=== PATIENT | female | born 1995 | race Caucasian/White ===

== ENCOUNTER 2024-03-12 07:00 | Outpatient (CLI) | payer OTHER, SELFPAY ==
--- OUTSIDE RECORDS SUMMARY | 2024-03-11 16:06 | XMS_ITS | Clinical Summary ---
Author Organization [facility] Address [place], [place] [address] Care Team Providers Care Tax Analyst Name Role Phone Demi Rosario MD Primary Care Provider [phone] Allergies No known active allergies Medications triamcinolone 0.5% (ARISTOCORT) 0.5 % creamIndications :Eczema, unspecified type APPLY EXTERNALLY TO THE AFFECTED AREA THREE TIMES DAILY 15 g 5 4 Active Active Problems Problem Noted Date Diagnosed Date Bilateral temporomandibular joint pain 4 Overview (04/18/2023): dentist referral to head and neck clinic Family history of breast cancer 06/17/2018 Overview (04/18/2023): Mother summer 2022 Eczema 10/19/2013 Resolved Problems Problem Noted Date Diagnosed Date Resolved Date Contraception 10/19/2013 04/18/2023 Overview (08/20/2016): IUD placed 08/2016 Immunizations Name Administration Dates Next Due DTaP 04/25/1999 Hepatitis B (Adult) 01/31/2017,08/07/2016,2016 Human Papilloma Virus Vaccine 10/06/2009 ,10/06/2009,05/23/2009,05/23,01/31/2009,01/31/2009 Inactivated Polio Vaccine 04/25/1999 Influenza Virus, Unspecified 12/24/2015, 12/14/2014,12/24/2013,12/24 Influenza, IIV3 (Age 6-35 mos) 12/16/2010 Influenza, IIV3 (Age >=3 years) 02/03/2013 Influenza, IIV4 12/30/2019,01/31/2017,02/13/2016 MENINGOCOCCAL VACCINE 2 VIAL 2MO-55YO (MENVEO) 10/19/2013 MMR 04/25/1999 Meningococcal Vaccine (Menactra) 06/02/2012,03/11 Meningococcal Vaccine (Menomune) 09/30/2006 Td (Age >=7 Years) 09/30/2006 Tdap 10/19/2013,09/30/2006 Tuberculin (PPD) 06/19/2018,07/07/2017 Family History Medical History Relation Name Comments Allergies Brother PCn Depression Brother Allergies Mother PCN Cancer-breast Mother Hyperlipidemia Paternal Grandfather Hypertension Paternal Grandfather Alcohol/Drug Paternal Uncle Relation Name Status Comments Brother Alive Father Alive Maternal Grandfather Alive Maternal Grandmother Alive Mother Alive Paternal Grandfather Alive Paternal Grandmother Alive Paternal Uncle Sister 1 Alive Sister 2 Alive Social History Tobacco Use Types Packs/Day Years Used Date Smoking Tobacco: Never Smokeless Tobacco: Never Tobacco Cessation:Counseling Given: Yes Alcohol Use Standard Drinks/Week Comments Yes 0 (1 standard drink = 0.6 oz pur e alcohol) Occasionally PHQ-2 Answer Date Recorded PHQ-2 TOTAL SCORE 1 04/18/2023 Social Connections Answer Date Recorded Frequency of Communication with Friends and Fami ly Not on file 04/18/2023 Financial Resource Strain Answer Date R ecorded Difficulty of Paying Living Expenses Not on file 2021 Difficulty of Paying Living Expenses Not on file 2021 Comments No Sex and Gender Information Value Date Recorded Sex Assigned at Not on file Legal Sex Female 5:50 AM 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 SPECIALIST Gender Identity Not on file Sexual Orientation Not on file Occupation Industry Job Start Date Job End Date student Not on file Not on file Not on file Obstetrics History Para Term AB IAB SAB Ectopic Multiple Livin g Live Births 0 0 0 0 0 0 0 0 0 0 Last Filed Vital Signs Vital Sign Reading Time Taken Comments Blood Pressure 106/72 04/18/2023 8:44 AM INTERNET SPECIALIST Pulse 83 04/18/2023 8:44 AM INTERNET SPECIALIST Temperature 37 C (98.6 F) 06/17/2018 9:25 AM CDT Respiratory Rate 20 08/17/2021 11:30 AM CDT Oxygen Saturation 98% 04/18/2023 8:44 AM INTERNET SPECIALIST Inhaled Oxygen Concentration - - Weight 72.1 kg (159 lb) 04/18/2023 8:44 AM INTERNET SPECIALIST Height 161.3 cm (5' 3.5) 04/18/2023 8:44 AM INTERNET SPECIALIST Body Mass Index 27.72 04/18/2023 8:44 AM INTERNET SPECIALIST Plan of Treatment Health Maintenance Due Date Last Done Comments HIV for age 15-65 2009 Hepatitis C screening for age 18-79 2012 Pap test for age 21-65 09/09/2023 09/08/2020, 2016 Tetanus booster 10/20/2023 10/19/2013, 09/08, 09/30/2006 COVID-19 vaccine series ( season) 2023 04/11/2020, 03/14/2020 Influenza for age 9-49 11/09/2023 , 01/31/2017, 02/13/2016, Additional history exists BMI (ht and wt on same day) for age 18+ 04/18/2024 04/18/2023, 08/17/2021, 09/08/2020, Additional history exists Depression screening for age 12+ 04/18/2024 04/18/2023, 08/17/2021, 09/08/2020, Additional history exists Tdap Completed 10/19/2013, 09/30/2006 Pneumococcal series for age 6-49 Aged Out No longer eligible based on patient's age to complete this topic Procedures Procedure Name Priority Date/Time Associated Diagnosis Comments COSTUME DRAPER THIN PREP PAP SCREEN IMAGED Routine 09/08/2020 3:13 PM CDT Screening for cervical cancer from Last 3 Months or Most Recently Relevant to Health Maintenance Results * COSTUME DRAPER THIN PREP PAP SCREEN IMAGED [[id number]] (09/08/2020 3:13 PM CDT) Case Report Gynecologic Cytology Report Case: [id number] Authorizing Provider: Demi Rosario MD Collected: 09/08/2020 1513 Ordering Location: [facility] Received: 09/08/2020 1513 Clinic First Screen: Lázaro Quach Specimen: COSTUME DRAPER ThinPrep Vial Screening, Cervical 09/20/2020 10:32 AM CDT [facility] [employer] [facility] INTERPRETATION/ RESULT NEGATIVE FOR INTRAEPITHELIAL LESION OR MALIGNANCY (NIL) (none) 09/20/2020 10:32 AM CDT [facility] [employer] [facility] IMEN ADEQUACY Satisfactory for evaluation Endocervical component present 09/20/2020 10:32 AM CDT [facility] [employer] [facility] HPV REQUEST HPV if ASCUS 09/20/2020 10:32 AM CDT [facility] [employer] [facility] Date of LMP 08/23/2020 09/20/2020 10:32 AM CDT [facility] [employer] [facility] Last Pap Date 08/20/16 09/20/2020 10:32 AM CDT [facility] [employer] [facility] Last Pap Result NIL 10:32 AM CDT [facility] [employer] [facility] Abnormal Pap or [place] Bx in last 5 years No 09/20/2020 10:32 AM CDT [facility] [employer] [facility] Menstrual Status Regular Periods 09/20/2020 10:32 AM CDT [facility] [employer] [facility] [place] Bx Done Today No 09/20/2020 10:32 AM CDT [facility] [employer] [facility] Additional Information None given 09/20/2020 10:32 AM CDT [facility] [employer] [facility] ENTRAL [facility] Comment: Cytology is screened at [facility] [employer], Central Laboratory - [address], [place] [address] and [facility] - [address] [address], [place] [address] and [facility] - [address] [place] [address] Interpreted at [facility], Central Laboratory - [address], [place] [address] Automated Review Successful 09/20/2020 10:32 AM CDT [facility] [employer] [facility] ENTRAL [facility] Comment:Specimen processed s uccessfully by automated box toe maker device, ThinPrep Imaging System, [employer] Note The pap test is a screening technique, not a diagnostic procedure. It is used primarily to screen for squamous cancers and precursor lesions. Published studies have shown that it is subject to both false negative and false positive results. The pap test should not be used as the sole means to diagnose or exclude pre-malignant and malignant lesions. 09/20/2020 10:32 AM CDT [facility] Other (Cervical) Non-Blood / Unknown 09/08/2020 3:13 PM CDT 09/08/2020 3:13 PM CDT us Demi Rosario MD PATHOLOGY/CYTOLOGY Final R esult [facility] LAB[facility] [address] [place] [address], [place] from Last 3 Months or Most Recently Relevant to Health Maintenance Care Teams Tax Analyst Relationship Specialty Start Date End Date Demi Rosario MD PCP - General 05/20/08
--- OUTSIDE RECORDS SUMMARY | 2024-03-11 16:06 | XMS_ITS | Encounter Summary ---
Author Organization [facility] Address [address], [place] [address] Care Team Providers Care Nurses Aide Name Role Phone Demi Rosario MD Primary Care Provider [phone] Encounter Details Date Type Department Care Team ([facility] st Contact Info) Description 08/30/2023 Notes/Orders [facility] [id number] [place], [place] [id number] [place] [id number] [address] [place], [place] [id number] Social History Tobacco Use Types Packs/Day Years Used Date Smoking Tobacco: Never Assessed Sex and Gender Information Value Date Recorded Sex Assigned at Not on file Gender Identity Not on file Sexual Orientation Not on file documented as of this encounter Progress Notes * Yani Gross, PT - 08/30/2023 11:59 PM CDT Physical Therapy Discharge Summary Outcome measures at discharge: PT - Discharge Total Visits: 2 Reason for discharge: Patient has not been consistent with attendance and/or failed to schedule appointments as planned. Attainment of goals: See above Patient Compliance with Therapy: Patient did not return for follow up care as planned, so unable to determine patient's current level of function. Discharge recommendations: Patient will continue to work independently with home program/self management strategies. OR PACKAGING ENGINEER documented in this encounter Plan of Treatment Not on file documented as of this encounter Visit Diagnoses Not on filedocumented in this encounter Care Teams Nurses Aide Relationship Specialty Start Date End Date Demi Rosario MD [address] [place] [address] PCP - General Family Practice 08/15/23 documented as of this encounter
--- OUTSIDE RECORDS SUMMARY | 2024-03-11 16:06 | XMS_ITS | Clinical Summary ---
Author Organization [facility] Address [address] [place] [address] Care Team Providers Care Adjunct Writing Instructor Name Role Phone Demi Rosario MD Primary Care Provider [phone] Source Comments You are receiving this document as you are listed as the primary care provider,follow-up provider, or the patient has been referred to you for consultation.This is in compliance with the Medicare and[facility] [employer] EHR Incentive Program,which states Providers who transition their patient to another setting of careor provider of care or refers their patient to another provider of care shouldprovide summary care record for each transition of care or referral. [facility] [employer] Social History Tobacco Use Types Packs/Day Years Used Date Smoking Tobacco: Never Assessed Sex and Gender Information Value Date Recorded Sex Assigned at Not on file Gender Identity Not on file Sexual Orientation Not on file Plan of Treatment Health Maintenance Due Date Last Done Comments Cervical Cancer Screening Due 1994 Hep C Screening (Preventive Services) 1994 IPV (Polio) (2 of 3 - 4-dose series) 05/23/1999 04/25/1999 HIV Screening (Preventive Services) 2010 Adult Preventive Visit 2012 HepB (1) 2013 DTaP/Tdap/Td (4 - Tdap) 10/20/2023 10/20/19 14, 09/30/2006, 09/30/2006, Additional history exists COVID-19 Vaccine ( season) 2023 04/11/2020, 03/14/2020 Influenza (#1) 2023 12/30/2019, 01/09, 02/13/2016, Additional history exists Zoster/Shingles (1 of 2) 2044 HPV Vaccine Completed 10/06/2009, 05/08, 01/31/2009 MCV4 Completed 10/19/2013, 05/09, 09/30/2006, Additional history exists HepA Aged Out No longer eligi ble based on patient's age to complete this topic Hib Aged Out No longer eligi ble based on patient's age to complete this topic Pneumococcal Aged Out No longer eligi ble based on patient's age to complete this topic Care Teams Adjunct Writing Instructor Relationship Specialty Start Date End Date Demi Rosario MD [address] [place] [id number] PCP - General Family Practice 08/15/23
--- OUTSIDE RECORDS SUMMARY | 2024-03-11 16:06 | XMS_ITS | Data Portability ---
Author Organization [place] [facility] Address [address] [place] [id number] Care Team Providers Care Router Setter Name Role Phone NISHA MONAE MD Primary Care Provider MEHRAN TRINH Referring Provider [phone] Assessment Encounter Date Assessment Date Assessment LastModified by Organization Details LastModified Time 07/25/2023 07/25/2023 Today I spent a considerable amount of time discussing the patients past medical and personal history, as well as performing a physical examination all of which is documented in it's entirety in the electronic health record. I reviewed the pathophysiology of the disorder, potential contributing and risk factors as well as treatment options to address their complaints. I discussed the pros and cons of advanced imaging with CT. Today no imaging was obtained. Panoramic imaging from March 2022 was reviewed with patient today. In this radiograph the mandibular condyles were partially visualized and appear relatively normal in morphology. There was no other suggestion of osseous or odontogenic abnormalities. I believe it is reasonable to defer advanced imaging at this time. From a treatment perspective I recommended a rehabilitative treatment approach. Treatment begins with home self management designed to rest the muscles of mastication and reduce inflammation in the temporomandibular joints. This includes heat and ice compresses, eating a soft food or pain-free diet, bilateral chewing identifying and decreasing daytime muscle tension and modification of their sleep position. Today I taught simple jaw exercises designed to improve the jaw mechanics and movement, improve range of mouth opening and improve TM joint fluid circulation to facilitate healing. This includes jaw rotation, simple stretch and relaxed breathing. This was both demonstrated and given in written format. Concurrently I taught proper posture. Beyond self management I believe that they would benefit from a mandibular intraoral appliance. This will be considered in follow up after exploring insurance coverage. In addition I've recommended rehabilitation with physical therapy. A referral was provided per patient request. I discussed medication options including use of NSAIDs and muscle relaxants. I discussed the medication overuse component of NSAIDs.. We mutually agreed to defer medications at this time. I recommended supplementation with Magnesium glycinate at this time. I reinforced addressing daytime contributing factors including postural factors. I encouraged mini-breaks during the day, chin tuck exercise and relaxed breathing. The goal of treatment is to improve pain, function and focus on long-term self-management strategies. I believe that by following these treatment recommendations there is a good prognosis for reduction of symptoms. History was obtained from the patient. The patient has 5 diagnoses they would like to address. This case is moderate complexity because of multiple diagnoses with chronic symptoms. Data reviewed included: previous imaging. Risk of complications include progressive disease/symptoms. Today time spent may have included a review of past records, history taking, review of diagnoses, contributing factors, treatment plan, diagnostic testing, prognosis, expectations, risks and complications of treatment/no treatment, discussions with other providers and completing documentation was 60 minutes. Cost of care and insurance coverage was reviewed and discussed with the patient. Not available 07/25/2023 15:35:38 Plan of Treatment Reminders Order Date Submit Date Provider Last Modified By Organization Details Last Modified Time Details Appointments None recorded. Lab None recorded. Referral physical therapist referral - Please call patient to schedule 2023 024 [facility], [address] [facility], [address], [place], [address], 16:19:02 Procedures None recorded. Surgeries None recorded. Imaging None recorded. Medication Orders None recorded. Patient TargetsNo targets recorded. Patient Instructions Encounter Date Encounter Id Patient Instructions Last Modified By Organization Details Last Modified Time 07/25/2023 [id number] Self Care for TMD Not availab le 07/25/2023 15:36:28 oral appliance preparation* Not available 07/25/2023 15:36:30 Three Jaw Exercises Not available 07/25/2023 15:36:28 Contributing factors identified at today's appointment include: postural factors, daytime clenching, sleep bruxism, oral habits, stress, tension and difficulty relaxing. [email or web address] Not available 07/24/2023 12:28:07 Reason for Referral Physical Therapist Referral for Articular disc disorder of temporomandibular joint TMJ intermittent catching, arthralgia and muscle tension, headaches Please call patient to schedule Referring Physician: Sona Perales, Pain Management, Encounter Date: 07/25/2023 Results Created Date Observation Date Name Description Value Unit Range Abnormal Flag Note LastModifiedBy Organization Detail LastModifiedTime 07/25/19 24 07/25/2023 oral appli ance prepa ratio n* Type of appliance mandib ular stabil izatio n applia nce Not Available [facility] [address], [place], [address], 07/24/2023 12:24:19 07/25/19 24 XR, ortho panto gram No observ ation record ed. ssylvers Not Available 2023 10:27:58 Result Notes None recorded. 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 Active 2023 SONA PERALES BDS,MS [address], [place], [address], [facility] 4 15:34:40 Bilateral temporomand ibular joint pain 9725404659650 9105 Active 2023 SONA PERALES BDS,MS [address], [facility] [place], [address], [place] [facility] 4 15:34:44 Sleep related bruxism 079208787 Active 2023 SONA PERALES BDS,MS [address], [place], [address], [facility] 4 15:34:49 Myofascial pain 025760453 Active 2023 SONA PERALES BDS,MS [address] [facility] [address], [place], [address], [facility] 4 15:34:52 Episodic tension-typ e headache 249512051 Active 2023 SONA PERALES BDS,MS [address], [place], [address], [facility] 4 15:35:29 Problem Notes None recorded. Procedures Surgical History None recorded. Imaging Results Imaging Date Name Status LastModified by Organization Details LastModified Time 07/25/2023 XR, orthopantogram completed Inform ation not available 07/25/2023 10:27:58 Procedure Notes None recorded. Medical Equipment None Reported. Medications Name Sig Start Date Stop Date Status Note LastModified by Organization Details LastModified Time triamcinolone acetonide 0.5 % topical cream APPLY TOPICALLY TO THE AFFECTED AREA THREE TIMES DAILY active Not Available Not Available No t Available Vitals Date Recorded Heart rate Body height Body mass index (BMI) Body weight Systolic blood pressure Diastolic blood pressure Provider Name and Address Organization Details Last Updated DateTime 4 74 /min 160.02 cm 27.5 kg/m2 37590.8 2 g 108 mm[Hg] 66 mm[Hg] Lavinia Van [facility] 4 10:14:33 Social History Question Answer Notes LastModified by Organizat ion Details LastModified Time Tobacco Smoking Status Never Smoker Lavinia marie [facility] 07/25/2023 10:31:12 What Is Your Level Of Alcohol Consumption? Occasional Information not available 07/25/2023 What Is Your Level Of Caffeine Consumption? Occasional Information not available 07/25/2023 Are You Currently Employed? Yes Information not available 07/25/2023 What Type Of Diet Are You Following? REGULAR Information not available 07/25/2023 What Is The Highest Grade Or Level Of School You Have Completed Or The Highest Degree You Have Received? 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 [facility] - Information not available 07/25/2023 Sex: Unknown Functional Status Question Answer Note LastModified by Organizat ion Details LastModified Time What is your exercise level? Occasional ylvers Information not available 07/25/2023 Mental Status None recorded. Family History Relationship Description Onset Age of this Age Resolved Age Notes LastModified by Organization Details LastModified Time Paternal Grandfather Arthritis ylvers Not available 10:30:26 Brother Depressive disorder ssylvers Not available 2023 10:30:37 Sister Depressive disorder ylvers Not available 2023 10:30:37 Medical History Condition Response Headaches Y Gynecological HistoryNo gynecological history recorded. Obstetrics History GPAL:G 0 P 0 0 0 0 Immunizations Vaccine Type Date Status Note Provider Nam e and Address Organization Details Recorded Time SARS-COV-2 (COVID-19) vaccine, UNSPECIFIED 03/14/2020 completed JULIAN [facility] 07/25/2023 10:30:07 SARS-COV-2 (COVID-19) vaccine, UNSPECIFIED 04/11/2020 JULIAN [facility] 07/25/2023 10:30:17 Past Encounters Encounter ID Performer Location Encounter Start Date Encounter Closed Date Diagnosis/Indication Diagnosis SNOMED-CT Code Diagnosis ICD10 Code [id number] SONA PERALES BDS,MS [place]ello [facility] [address] [place] [phone] 07/25/2023 10:00:22 07/25/2023 11:09:04 Articular disc disorder of temporomandibular joint 42290732 M26.633 Myofascial pain 94573351 9 M79.11 M79.12 Bilateral temporomandibular joint pain 1314811601 1594230 M26.623 Sleep related bruxism 27 7000556 G47.63 Episodic t ension-type headache 123154414 G44.219 Health Concerns Section Related Observation LastModified by Organization Detai ls LastModified Time None Recorded Concern Status LastModified by Organization Details LastModified Time None Recorded Advance Directives Directive None Recorded Payers Encounter Date Sequence Insurance Name Policy Number Policy Colin Covered Member ID Colin Member ID Guarantor Name 07/25/2023 1 [employer] [id number] Arpan Felix [id number] Lavinia Felix Notes Date Note Type Note Provider Name and Address Organization Details Recorded Time 07/25/2023 text/html general HPI for jaw, face, TMD painReported bypatient.Onset:starte d 1.5 year(s) ago Location:bilateral Quality:aching; sore Severity:pain level 2-8/10 Durationintermittent Symptom triggers:stress Aggravating Factors:stress; yawning; wide mouth opening; chewing Alleviating Factors:NSAIDs; Chiropractor Associated Symptoms:jaw clicking bilateral;jaw popping bilateral;jaw locks open bilateral Prior Tests:panorex; 1 year ago Prior opiniondentist Patient presents today for evaluation of a possible temporomandibular disorder. These symptoms are {{acute chronic*}} and began with {{ no clear triggering events significant stress and tension*}}. Previous consultation include {{ none evaluation with his/her primary care provider evaluation with his/her dentist* evaluation with both his/her dentist and primary care provider}}. Symptoms are {{right sided only left sided only bilateral*}} and aggravated by {{ no clear triggers* jaw use and function clenching and grinding of their teeth stress and tension}}. The patient is {{aware not aware*}} of teeth clenching and grinding. Lavinia is referred by her general dentist for her main concern of bilateral jaw pain, jaw joint noises, and locking which started 1.5 years ago.Previous treatment: nonePrevious imaging: noneTrauma history: noneSleep: good 7-8 hours- solid Lavinia reports onset of jaw symptoms 8 years ago, with no inciting event. She denies prior injury or trauma of her head, neck or face. She reports being aware of onset of jaw joint noises and jaw locking on the right side, she attributes onset to high stress over the last 1.5 to 2 years. Lavinia reports bilateral masseter and preauricular region of dull achy pain at rest and increasing intensity 2-4/10. She reports worse pain at the end of the day. She reports catching episodes presenting in bilateral joints lasting a few seconds associated with a sharp pain. She denies swelling in the jaw joints. Lavinia is aware of headaches related to jaw symptoms, in bilateral temporal. She denies nausea, vomiting, light or sound sensitivity with the headaches. She reports headaches present 2-3 times of the week and lasting a few hours. She reports ibuprofen alleviates the headache. Ibuprofen 4x 200mg - 1-3 times. Family history is significant for migraine in mothers, osteoarthritis in paternal grandfather. She reports restorative sleep. 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 SONA PERALES BDS,MS [address] [facility] [address], [place], [address], [facility] 07/25/2023 15:36:31 OBGyn Episode No OBEpisode recorded.
--- NOTE | 2024-03-12 07:15 | CRLHL7_ITS ---
For Patients: As a result of the Century Cures Act, medical imaging exams and procedure reports are released immediately into your electronic medical record. You may view this report before your referring provider. If you have questions, please contact your health care provider. INDICATION: First trimester scan, establish dates. COMPARISON: None. TECHNIQUE: Real-time ward-scale imaging of the pelvis was performed. FINDINGS: Sonographic imaging demonstrates a single living intrauterine gestation. The embryo demonstrates a regular cardiac rate measuring 178 beats per minute. The embryo`s crown-rump length measurement of 2.0 cm corresponds to a gestational age of 8 weeks 4 days with a sonographic due date of 10/18/2024. There is a normal-appearing yolk sac. There are no gross abnormalities noted within the embryo at this early state of development. The gestational sac has a normal appearance. There is a 1.3 x 1.0 x 1.1 cm perigestational hemorrhage. The amount of fluid within the sac appears appropriate for gestational age. Prominent chorionic bump is present measuring 1.4 cm. The cervix is closed. The myometrium appears normal. The ovaries are of normal size. Corpus luteal cyst right ovary. There are no suspicious fluid collections noted in the cul-de-sac. IMPRESSION: Single living intrauterine with sonographic gestational age 8 weeks 4 days and a sonographic due date 10/18/2024. Subchorionic hemorrhage measures 1.3 x 1.0 x 1.1 cm. Possible chorionic bump measuring 1.4 cm. Follow-up in 2-3 weeks recommended. Dictated by Natan Beltrán MD @ 03/12/2024 9:19:17 AM (Electronically Signed)
== END 2024-03-12 07:01 | disposition home or self-care (01) ==
PROVIDERS: PCP Family Medicine; Visit Provider Advanced Practice Midwife
DX: Z34.91 Encounter for supervision of normal pregnancy, unspecified, first trimester (principal); O20.9 Hemorrhage in early pregnancy, unspecified; Z3A.08 8 weeks gestation of pregnancy
CPT/HCPCS: 76817; 83021; 86592; 86703; 86704; 86706; 86762; 86787; 86803; 86850; 86900; 86901; 87086; 87340; 87491; 87591; 87624; 88142

== ENCOUNTER 2024-03-12 08:28 | Outpatient (CLI) | payer OTHER, SELFPAY ==
[2024-03-12 12:48] LABS: Chlamydia DNA Amplified* NOT DETECTED (No Detected); GC DNA Amplified* NOT DETECTED (No Detected)
[2024-03-14 04:40] LABS: HPV Source Cervical; HPV, High Risk by TMA Not Detected
== END 2024-03-12 08:29 | disposition home or self-care (01) ==
PROVIDERS: PCP Family Medicine; Visit Provider Advanced Practice Midwife
DX: O20.9 Hemorrhage in early pregnancy, unspecified (principal); Z3A.08 8 weeks gestation of pregnancy; Z12.4 Encounter for screening for malignant neoplasm of cervix
CPT/HCPCS: 83020; 83021; 85660; 86592; 86703; 86704; 86706; 86762; 86787; 86803; 86850; 86900; 86901; 87086; 87340; 87491; 87591; 87624; 87625; 88141; 88142

== ENCOUNTER 2024-03-26 09:02 | Outpatient (CLI) | payer OTHER, SELFPAY ==
--- NOTE | 2024-03-26 09:15 | CRLHL7_ITS ---
For Patients: As a result of the Cures Act, medical imaging exams and procedure reports are released immediately into your electronic medical record. You may view this report before your referring provider. If you have questions, please contact your health care provider. OB ULTRASOUND INDICATION: Follow-up chorionic bump vs outpouching of gestational sac. TECHNIQUE: Real time ward scale imaging of the fetus was performed. Transabdominal. Previous US: Yes 03/12/2024. RAJENDRA by US: 10/18/2024. GA: 8 w, 4 d. CRL: 4.2 cm. 11 w 1 d. RAJENDRA: 10/14/2024. FHR: 178 BPM. Gestational sac: 4.0 cm. Appears within normal limits. Yolk sac: 4.8 mm. Appears within normal limits. Right ovary: 3.3 x 1.9 x 2.2 cm. Left ovary: N/V. IMPRESSION: 1. Interval resolution of previously noted chorionic bump. 2. Subchorionic hemorrhage again noted measuring 2.6 x 0.5 x 0.7 cm. 3. Single living intrauterine with sonographic gestational age 11 weeks 1 day and sonographic due date 10/14/2024. Exam performed with transabdominal technique. Natan Beltrán M.D. Diagnostic Radiologist [email or web address] RIVERA/pascual garner/Dictated by: Natan Beltrán MD @ 03/26/2024 9:59:00 AM (Electronically Signed)
== END 2024-03-26 09:03 | disposition home or self-care (01) ==
LOC: US 09:03
PROVIDERS: PCP Family Medicine; Visit Provider Advanced Practice Midwife
DX: O28.3 Abnormal ultrasonic finding on antenatal screening of mother (principal); O20.9 Hemorrhage in early pregnancy, unspecified; Z3A.11 11 weeks gestation of pregnancy
CPT/HCPCS: 76801

== ENCOUNTER 2024-06-04 13:56 | Outpatient (CLI) | payer OTHER, SELFPAY ==
--- NOTE | 2024-06-04 14:00 | CRLHL7_ITS ---
For Patients: As a result of the Century Cures Act, medical imaging exams and procedure reports are released immediately into your electronic medical record. You may view this report before your referring provider. If you have questions, please contact your health care provider. OB ULTRASOUND RAJENDRA by US: 10/17/2024. GA: 20 w, 5 d. INDICATION: screen. TECHNIQUE: Real time grayscale imaging of the fetus was performed. Evaluate anatomy. Transabdominal. position: Breech. Cervix: Visualized. Technique: Transabdominal. Length of closed cervix: 3.6 cm. Placenta/cord: Anterior. Technique: Transabdominal. Placenta tip to internal OS: 7.1 cm. Umbilical Cord: 3-vessel cord. Placenta insertion: Central. Amniotic Fluid: 3.4 cm SDP (greater than/equal to: 2- less than 8 cm). SURVEY: Observed Structures. Calvarium/Spine: Cerebellum: 2.1 cm, 21 w 1 d. Cisterna Magna: 6.0 mm. Nuchal Fold: 5.7 mm. Lateral Ventricle: 6.8 mm. CSP: Yes. Midline Falx: Yes. Choroid Plexus: Yes. Spine: Yes. Abdomen: Stomach: Yes. Abd Cord Insertion: Yes. Urinary Bladder: Yes. Kidneys: See impression Diaphragm: See impression Face: Nose/lips: Yes. Orbital view: Yes. Profile: Yes. Limbs: Upper Extremities: Yes. Lower Extremities: Yes. Hands: See impression Feet: Yes. Vascular: 4-Chamber Heart: Yes. LVOT: See impression RVOT: Yes. 3VV: Yes. 3VTV: Yes. BPD: 4.6 cm. 19 w, 5 d, 14 percent. HC: 17.9 cm. 20 w, 2 d, 25 percent. AC: 16.3 cm. 21 w, 3 d, 67 percent. FL: 3.3 cm. 20 w, 1 d, 24 percent. FL/AC ratio: 19.95 percent. HC/AC ratio: 1.09. heart rate: 138 bpm. age by this US: 20 w, 3 d. RAJENDRA by this US: 10/19/2024. EFW: 374 g. Weight: 13 oz. Percentile by RAJENDRA: 47 percent. IMPRESSION: 1. Concordance of clinical and sonographic dating. 2. Incomplete visualization of the kidneys, diaphragm, hands, and LVOT. Remainder of the anatomic survey is normal. Short-term follow-up recommended. Natan Beltrán M.D. Diagnostic Radiologist [email or web address] RIVERA/jviry jviry/Dictated by: Natan Beltrán MD @ 06/06/2024 9:02:00 PM (Electronically Signed)
== END 2024-06-04 13:57 | disposition home or self-care (01) ==
LOC: US 13:57
PROVIDERS: PCP Family Medicine; Visit Provider Physician Assistant
DX: Z34.92 Encounter for supervision of normal pregnancy, unspecified, second trimester (principal); O35.8XX0 Maternal care for other (suspected) fetal abnormality and damage, not applicable or unspecified; Z3A.20 20 weeks gestation of pregnancy
CPT/HCPCS: 76805

== ENCOUNTER 2024-06-25 08:03 | Outpatient (CLI) | payer OTHER, SELFPAY ==
--- NOTE | 2024-06-25 08:15 | CRLHL7_ITS ---
For Patients: As a result of the Century Cures Act, medical imaging exams and procedure reports are released immediately into your electronic medical record. You may view this report before your referring provider. If you have questions, please contact your health care provider. OB ULTRASOUND RAJENDRA by LMP or US: 10/17/2024. GA: 23 w, 5 d. Single. Comparison: Ultrasound 06/04/2024, 03/10/2024, 03/12/2024. INDICATION: Follow-up missed anatomy. TECHNIQUE: Real time grayscale imaging of the fetus was performed. Transabdominal. CERVIX: Not visualized. POSITIONING: Vertex. AMNIOTIC FLUID: 4.3 cm. SDP (N: greater than 2 x 1 cm) PLACENTA: Technique: Transabdominal. PLACENTA POSITION: Anterior. DOPPLER: heart rate: 138 bpm. BIOMETRY: BPD: 5.6 cm. 23 w, 2 d, 26 percent. HC: 21.1 cm. 23 w, 1 d, 16 percent. AC: 18.7 cm. 23 w, 3 d, 32 percent. FL: 4.4 cm. 24 w, 2 d, 59 percent. FL/AC ratio: 23.43 percent. HC/AC ratio: 1.13. EFW: 624 g. Weight: 1 lbs, 6 oz. age by this US: 23 w, 4 d. RAJENDRA by this US: 10/18/2024. Percentile by RAJENDRA: 43 percent. IMPRESSION: 1. Sonographic gestational age 23 weeks 4 days and sonographic due date 10/18/2024. Good correlation with dates. Normal interval growth. 2. Estimated weight 43rd percentile. Abdominal circumference 32nd percentile. 3. Normal nose, lips, four chamber heart, LVOT, three-vessel trachea view, profile, RVOT, and three-vessel view. Normal bladder, kidneys, spine, diaphragm, and hands. Normal lateral ventricles and cavum septum pellucidum. Natan Beltrán M.D. Diagnostic Radiologist [email or web address] RIVERA/pascual garner/Dictated by: Natan Beltrán MD @ 06/25/2024 10:13:00 AM (Electronically Signed)
== END 2024-06-25 08:04 | disposition home or self-care (01) ==
LOC: US 08:04
PROVIDERS: PCP Family Medicine; Visit Provider Obstetrics & Gynecology
DX: O35.AXX0 Maternal care for other (suspected) fetal abnormality and damage, fetal facial anomalies, not applicable or unspecified (principal); O35.BXX0 Maternal care for other (suspected) fetal abnormality and damage, fetal cardiac anomalies, not applicable or unspecified; Z3A.23 23 weeks gestation of pregnancy
CPT/HCPCS: 76816

== ENCOUNTER 2024-07-23 08:11 | Outpatient (CLI) | payer OTHER, SELFPAY | END 2024-07-23 08:12 | disposition home or self-care (01) | LOC: NFLDREF 07-30 00:27 | PROVIDERS: PCP Family Medicine; Referring Provider Family Medicine; Visit Provider Obstetrics & Gynecology | DX: Z34.03 Encounter for supervision of normal first pregnancy, third trimester (principal) | CPT/HCPCS: 86592; 86850 ==

== ENCOUNTER 2024-09-17 13:51 | Outpatient (CLI) | payer OTHER, SELFPAY ==
--- NOTE | 2024-09-17 14:00 | CRLHL7_ITS ---
For Patients: As a result of the Century Cures Act, medical imaging exams and procedure reports are released immediately into your electronic medical record. You may view this report before your referring provider. If you have questions, please contact your health care provider. OB ULTRASOUND LMP: 01/11/2024. RAJENDRA by LMP: 10/17/2024. GA: 35 w, 5 d. Single. Comparison: Ultrasound 06/25/2024, 06/04/2024. INDICATION: Uterine size-date discrepancy. TECHNIQUE: Real time grayscale imaging of the fetus was performed. Transabdominal. CERVIX: Not visualized. POSITIONING: Vertex. AMNIOTIC FLUID: 6.0 cm. SDP (N: greater than 2 x 1 cm) PLACENTA: Technique: Transabdominal. PLACENTA POSITION: Anterior. DOPPLER: heart rate: 159 bpm. BIOMETRY: BPD: 8.4 cm. 33 w, 6 d, 11 percent. HC: 30.9 cm. 34 w, 3 d, 4 percent. AC: 30.0 cm. 34 w, 0 d, 14 percent. FL: 6.7 cm. 34 w, 2 d, 13 percent. FL/AC ratio: 22.19 percent. HC/AC ratio: 1.03. EFW: 2352 g. Weight: 5 lbs, 3 oz. age by this US: 34 w, 1 d. RAJENDRA by this US: 10/28/2024. Percentile by RAJENDRA: 13 percent. IMPRESSION: 1. Sonographic gestational age 34 weeks 1 day and sonographic due date 10/28/2024. Sonographic age is 11 days behind the clinical age. 2. Estimated weight 13th percentile. Abdominal circumference 14th percentile. Head circumference 4th percentile. Natan Beltrán M.D. Diagnostic Radiologist [email or web address] RIVERA/pascual garner/Dictated by: Natan Beltrán MD @ 09/17/2024 2:35:00 PM (Electronically Signed)
== END 2024-09-17 13:52 | disposition home or self-care (01) ==
LOC: US 13:51
PROVIDERS: PCP Family Medicine; Visit Provider Obstetrics & Gynecology
DX: O26.843 Uterine size-date discrepancy, third trimester (principal); O36.5930 Maternal care for other known or suspected poor fetal growth, third trimester, not applicable or unspecified; Z34.03 Encounter for supervision of normal first pregnancy, third trimester; Z3A.35 35 weeks gestation of pregnancy
CPT/HCPCS: 76816

== ENCOUNTER 2024-09-17 15:11 | Outpatient (CLI) | payer OTHER, SELFPAY ==
[2024-09-18 13:39] LABS: Strep B DNA Probe Negative (Negative)
[2024-09-18 13:52] LABS: Strep B Susceptibility Needed? No
== END 2024-09-17 15:12 | disposition home or self-care (01) ==
LOC: NFLDREF 15:12
PROVIDERS: PCP Family Medicine; Visit Provider Advanced Practice Midwife
DX: Z34.03 Encounter for supervision of normal first pregnancy, third trimester (principal)
CPT/HCPCS: 87081; 87653

== ENCOUNTER 2024-10-08 10:01 | Outpatient (CLI) | payer OTHER, SELFPAY ==
--- NOTE | 2024-10-08 10:15 | CRLHL7_ITS ---
For Patients: As a result of the Century Cures Act, medical imaging exams and procedure reports are released immediately into your electronic medical record. You may view this report before your referring provider. If you have questions, please contact your health care provider. INDICATION: Measuring small for dates TECHNIQUE: Ultrasound OB pelvis transabdominal. Real-time ward-scale imaging of the fetus was performed. COMPARISON: Ob ultrasound 09/17/2024 FINDINGS: Gestation: Single Presentation: Cephalic Placenta location: Anterior heart rate: 144 bpm Amniotic fluid volume single deepest pocket 1.7 cm, 0/2. motion 2/2. tone 2/2. breathing movements 2/2. Umbilical artery S/D ratio: 2.5 Biometry: BPD: 8.8 cm, 6th percentile HC: 31.9 cm, below the 3rd percentile AC: 32.3 cm, 9th percentile FL: 7.2 cm, 16th percentile FL/AC ratio: 22nd percentile HC/AC ratio:0.99 Biometry Conclusions: US/AUA: 36 weeks, 1 day. RAJENDRA: 11/04/2024 Weight: 13th percentile. 2903 grams IMPRESSION: Single live intrauterine gestation with a biophysical profile 08/15 with oligohydramnios at 36 weeks, 1 day. RAJENDRA of 11/04/2024. Estimated weight lies in the 13 percentile, with the head circumference below the 3rd percentile and abdominal circumference in the 9th percentile Dictated by Yin Collins MD @ 10/08/2024 10:55:24 AM (Electronically Signed)
== END 2024-10-08 10:02 | disposition home or self-care (01) ==
LOC: US 10:01
PROVIDERS: PCP Family Medicine; Visit Provider Advanced Practice Midwife
DX: O26.843 Uterine size-date discrepancy, third trimester (principal); Z3A.38 38 weeks gestation of pregnancy
CPT/HCPCS: 76816; 76819; 76820; 86592

== ENCOUNTER 2024-10-08 10:33 | Inpatient (IN) | payer OTHER, SELFPAY ==
[2024-10-08] VITALS (60 sets, daily range): BP systolic 94–148; BP diastolic 53–97; PULSE 67–106; RESP 12–18; TEMP 36.9–37; O2SAT 92–100; BMI 28.9
[2024-10-08 11:39] LABS: Amnisure Rom* Negative
[2024-10-08 12:11] LABS: Hematocrit 32.9 % (33.0-51.0); Hemoglobin* 10.9 gm/dL (12.0-16.0); Immature Granulocytes Abs Auto 0.07 K/uL (0.00-0.30); Immature Granulocytes Pct Auto 0.7 %; Mean Corpuscular HGB Conc 33 gm/dL (32-36); Mean Corpuscular Hemoglobin 28 pg (26-34); Mean Corpuscular Volume 86 fL (80-100); RDW Coefficient of Variation % 13.3 % (11.5-15.5); Red Blood Count 3.85 m/uL (4.00-5.20); White Blood Count* 10.33 K/uL (4.50-11.00)
[2024-10-08] MEDS: OXYTOCIN 30 unit/500 ML in NS 30 UNIT/500 ML BAG IVPB (12:22)
[2024-10-08] MEDS: LACTATED RINGERS 1000 ML 1,000 ML 124 ML IV (12:23)
[2024-10-08 12:27] LABS: Lymphocytes Absolute Auto 1.70 K/uL (0.90-2.90); Slide Review Reflex No
--- NOTE | 2024-10-08 14:29 | P.LDBA_ITS ---
Subjective History of Present Illness Time Seen by Provider: 11:43 Date Seen: 10/08/24 Narrative: Lavinia is a 29 yo at 38 5/7 weeks gestation is being admitted to Labor and Delivery for IOL for suspected Oligohydramnios with Growth Restriction, AC 9%ile. She was seen in clinic today and found to be measuring small for dates. She was sent for formal US where oligohydramnios, PEGGY 3, and IUGR with AC 9% was identified. She was recommended to be admitted to labor and delivery for monitoring and induction. She does not report any leaking of fluid and denies feeling as if her amniotic fluid has ruptured. When she arrived to labor and delivery her partner, Arpan, was at work. He is now here and at bedside. She is a little tearful and anxious about the sudden change in plan. All questions answered. Her full history and physical was dictated by JERRY Wiseman on 09/24/2024. Please see this for details. Imaging 10/08/2024: IMPRESSION: Single live intrauterine gestation with a biophysical profile 08/15 with oligohydramnios at 36 weeks, 1 day. RAJENDRA of 11/04/2024. Estimated weight lies in the 13 percentile, with the head circumference below the 3rd percentile and abdominal circumference in the 9th percentile. Specific Issues/Plans Partner: Arpan It Is boy! H&P:? 09/24/24 by Kristina Hopper CNM # IUGR, AC 9% diagnosed 10/08 * lagging fundal height/small for dates * growth US at 35 weeks 09/17/24: EFW 13% (43% on 06/25 and 47% on 06/04), BPD 11%, HC 4%, AC 14% #Rh negative * [place] Rh type: Rh negative * recommend Rhogam at 28 weeks if fetus Rh positive: Fetus Rh negative, RhoGAM not needed. # Possible chorionic bump seen on first US, RESOLVED ? Imagin06/04/2024: FAS normal, except incomplete visualization of the kidneys, diaphr agm, hands, and LVOT. EFW 47%, breech presentation, normal amniotic fluid volume, anterior placenta without previa. 06/25/2024: 1. Sonographic gestational age 23 weeks 4 days and sonographic due date 10/18/2024. Good correlation with dates. Normal interval growth. 2. Estimated weight 43rd percentile. Abdominal circumference 32nd percentile. 3. Normal nose, lips, four chamber heart, LVOT, three-vessel trachea view, profile, RVOT, and three-vessel view. Normal bladder, kidneys, spine, diaphragm, and hands. Normal lateral ventricles and cavum septum pellucidum. 32 week mental health: PHQ-9: 0 CATHY-7: 0? Last pap:? 09/08/20, NIL COVID: initial series, one booster, no booster today. Flu: declined TDAP: 08/06/2024 RSV: N/A OB - Problem Based A/P Additional Plan (1) Encounter for induction of labor: Status: Acute (2) Oligohydramnios in hill in third trimester: Status: Acute (3) IUGR (intrauterine growth restriction) affecting care of mother: Problem details: AC 3%ile Status: Acute (4) 38 weeks gestation of : Status: Acute Plan ASSESSMENT:? 29 yo at 38 5/7 weeks gestation? complicated by:?IUGR diagnosed today, Oligohydramnios, Rh negative, small for dates Labor type: Induced, early labor? Category 1 FHR pattern.?? Labor complicated by: IUGR and Oligohydramnios? GBS negative? ? PLAN:? 1. Routine intrapartum cares as ordered. Discussed options of labor induction including cervical ripening or pitocin. Recommend IV pitocin at this time based on SVE and status. Patient agreeable to plan.? 2. Monitoring per policy, continuous? 3. Planning wait and see but considering epidural. Candidate for analgesia of choice, if desired.?? 4. Patient encouraged to reposition and ambulate to promote physiologic labor and .? 5. Reviewed Oligohydramnios and discussed that although AmniSure is negative I cannot exclude ROM prior to today's visit vs oligohydramnios caused by IUGR or other placental concerns. Reviewed risks with oligohydramnios and why IOL is recommended. All questions answered. 6. Anticipate ? Delivery/Labor/Induction Plan Plan: induction Induction method: per pitocin protocol OB Exam Physical Exam Vital signs: Temp Pulse Resp BP Pulse Ox 98.4 F 90 16 116/71 98 10/08/24 12:54 10/08/24 14:09 10/08/24 14:09 10/08/24 14:09 10/08/24 14:09 Narrative: Vitals Reviewed Constitutional:? Alert and oriented x3 HEENT:? Normocephalic, atraumatic Neck:? Supple Lungs:? Clear to auscultation bilaterally Heart:? Regular rate and rhythm, no murmur, rub or gallop Abdomen:? Soft, nontender, and gravid. Vertex by Jamie's, confirmed with cervical exam. Extremities:? No edema or erythema Cervix: 2 cm/50%/-2 station/vertex NST: 135 bpm/moderate variability/15x15 accelerations/no decelerations/contractions every 2-5 minutes irregular and mild Amnisure: negativee Detailed Labor and Delivery Exam Patient Gravid: yes
[2024-10-08] MEDS: LACTATED RINGERS 1000 ML 1,000 ML 118 ML IV (20:22)
[2024-10-08] MEDS: LIDOCAINE 2% (PF) 5 ML VIAL EPIDURAL (22:26)
[2024-10-08] MEDS: ROPIVACAINE 0.2% 100 ml 100 ML 12 MG EPIDURAL (22:27)
[2024-10-08] MEDS: LACTATED RINGERS 1000 ML 1,000 ML 1118 ML IV (22:34)
[2024-10-08] MEDS: PHENYLEPHRINE 100 MCG/ML SYRINGE IVP (22:34)
[2024-10-08] MEDS: ePHEDrine sulfate 5 MG/ML inj 10 MG IVP (22:38)
--- NOTE | 2024-10-08 22:38 | PM.ANBPRC ---
PFSH PFSH Family History Mother Breast cancer, Onset Age: 42 Brother Depression Sister Depression Social History Narrative: Education: Bachelors and associates? ? 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 ? Partner: Arpan? 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 ? Pets: 2 dogs, [place]reras? ? Abuse: Denies past ? Unable to assess current, partner present? ? Special Diet: Denies? ? Ok with a blood transfusion: yes? ? Culture or congregation beliefs: denies? RISK FACTORS? ? Exercise Times/wk: occasional walks? ? Depression/Anxiety: denies? ? Previous Treatments NA ? Therapy NA CATHY: PHQ 9: ? ? Seat Belt Use: Routinely ? Smoking: Denies past/present? ? Alcohol/day: Denies while ? ?very rarely uses alcohol when not Caffeine: coffee normally one cup a day? ? Drug Use: Denies past/present? What is your current living situation?: I presently have a place to live Problems where you live: no known problems In the past 12 months, utilities in danger of being shut off: no In past 12 months, lack of transportation kept you from medical appts, meetings, work, or getting things needed for daily living: no In the past 12 mos, have been you worried that your food would run out before you had money to buy more?: never true In the past 12 mos, the food you bought just didn't last and you didn't have money to buy more?: never true Smoking Status: Never smoker How often does anyone, including family, friends and others, physically hurt you: never How often does anyone, including family, friends and others, insult or talk down to you: never How often does anyone, including family, friends and others, threaten you with harm: never How often does anyone, including family, friends and others, scream or curse at you: never Meds Home Medications and Allergies Home Medications ?Medication ?Instructions ?Recorded ?Confirmed ?Type vit 168-iron 27 mg-folic 1 cap PO DAILY 03/12/24 10/08/24 History acid 800 mcg-omega3 235 mg capsule (One-A-Day -1) triamcinolone acetonide 0.5 % 1 applic topical QDAY PRN 03/12/24 10/08/24 History topical cream calcium carbonate (Tums) 200 mg PO BID 06/04/24 10/08/24 History Allergies Allergy/AdvReac Type Severity Reaction Status Date / Time No Known Drug Allergies Allergy Verified 10/08/24 11:21 Results Labs Labs: Laboratory Results - last 24 hr 10/08/24 10/08/24 11:04 12:00 WBC 10.33 RBC 3.85 L Hgb 10.9 L Hct 32.9 L MCV 86 MCH 28 MCHC 33 RDW Coeff of Lisbet 13.3 Plt Count 198 Neut % (Auto) 75.0 H Lymph % (Auto) 16.9 L [place] % (Auto) 6.0 Eos % (Auto) 0.8 Baso % (Auto) 0.6 Neut # (Auto) 7.70 H Lymph # (Auto) 1.70 [place] # (Auto) 0.60 Eos # (Auto) 0.08 Baso # (Auto) 0.06 Abs Immat Gran (auto) 0.07 Imm/Tot Granulo (auto) 0.7 Membrane Rupture Negative Blood Type O Negative Antibody Screen NEGATIVE Vital Signs Vital Signs: Last Vital Signs Temp 98.4 F 10/08/24 18:57 Pulse 72 10/08/24 22:36 Resp 16 10/08/24 18:57 BP 117/64 10/08/24 22:36 Pulse Ox 98 10/08/24 22:37 Weight: 75.296 kg Height: 161.29 cm Anesthesia Procedures Epidural Insertion Patient Location: OB Start Time: 22:00 Stop Time: 23:00 Start Date: 10/08/24 Stop Date: 10/08/24 Reason for Block: procedure for pain Patient Position: sitting Performed By: Lesli Leslie Preanesthetic Checklist: IV checked, risks and benefits discussed, monitors and equipment checked, pre-op evaluation, timeout performed and anesthesia consent Prep: chlorhexidine gluconate Monitoring: blood pressure monitoring, continuous pulse oximetry and heart rate Approach: midline Vertebral Space: lumbar (1-5) Epidural Technique: LEILANI saline Needle Type: Tuohy needle Injection Technique: continuous catheter (continuous catheter) Needle gauge: 17 Needle Length (cm): 10 cm Needle Insertion Depth (cm): 7 Catheter Gauge: 19 Catheter Type: multi-orifice Catheter at skin depth (cm): 15 Test Dose Result: negative and lidocaine 1.5% with epinephrine 1 to 200,000
--- NOTE | 2024-10-08 22:42 | PM.OBPNL ---
Subjective Date Seen: 11/10/24 Narrative: Lavinia is a 29 yo at 38 5/7 weeks gestation is being admitted to Labor and Delivery for IOL for suspected Oligohydramnios with Growth Restriction, AC 9%ile. She is supported in labor by her partner, Arpan. She was coping well until her water broke. She reported things got intense quick. She requested an epidural and is now comfortable. SROM of small amount of clear fluid at 2052. After epidural placement, fetus was having deep variables. Patient was repositioned, pitocin was stopped, and IV fluid bolus started. Will monitor and treat BP after epidurals as needed per RN protocol. Objective Exam: Objective: Constitutional: Alert and oriented x3, mild distress, coping well Vital signs stable, see nurse documentation Abdomen: gravid, contractions palpate mild with contractions and soft between Cervix: 6 cm/90%/0 station/vertex NST: 135 bpm/moderate variability/15x15 accelerations/late and variable decelerations/contractions every 1-3 minutes lasting 60-80 seconds Vital Signs: Last Vital Signs Temp 98.4 F 10/08/24 18:57 Pulse 85 10/08/24 22:38 Resp 16 10/08/24 18:57 BP 94/54 L 10/08/24 22:38 Pulse Ox 96 10/08/24 22:42 Plan Plan: Assessment 29 yo at 38 5/7 weeks gestation? complicated by:?IUGR diagnosed today, Oligohydramnios, Rh negative, small for dates Labor type: Induced, early labor? Category 1 FHR pattern.?? Labor complicated by: IUGR and Oligohydramnios? GBS negative? ? PLAN:? 1. Routine intrapartum cares as ordered. Pitocin stopped at this time due to FHR concerns. Will restart pitocin as needed. Plan expectant management at this time. 2. Monitoring per policy, continuous? 3. Planning wait and see but considering epidural. Candidate for analgesia of choice, if desired.?? 4. Patient encouraged to reposition and ambulate to promote physiologic labor and .? 5. Anticipate ?
[2024-10-09] VITALS (69 sets, daily range): BP systolic 93–130; BP diastolic 53–72; PULSE 73–126; RESP 16; TEMP 37.1–37.3; O2SAT 86–100
[2024-10-09] MEDS: LACTATED RINGERS 1000 ML 1,000 ML 125 ML IV (02:31)
--- NOTE | 2024-10-09 03:38 | W.PM.OBVAGDE ---
OB Procedure Vag Delivery Mother Details Mother Details: The patient is a 29 year-old, 1, Para 1, admitted on 10/08/24 at 38.5 weeks gestation. : 1 Para: 1 Weeks Gestation: 38.6 Admission Date: 10/08/24 Additional Details Amniotic Membrane Status: SROM Amniotic Membrane Rupture Date: 10/08/24 Amniotic Membrane Rupture Time: 20:53 Amniotic Membrane Fluid Description: Clear Analgesia/Anesthesia Type: None Waterbirth: No Pitcoin: Yes Intrapartal Events: Labor Induction Induction Method: per pitocin protocol Labor Onset: 20:53 Complete: 00:55 Pushin:04 Heart: heart tones during second stage were category II with variables and decelerations during contractions that return to baseline between and accelerations present. Delivery Details Delivery Date: 10/09/24 Delivery Time: 03:06 Route of delivery: Infant Gender: Male Viability: Alive; Heart Rate Present Position at Delivery: OA Delivery Details: Patient was admitted for induction of labor for oligohydramnios and IUGR with AC at 9%ile. Her induction was started with IV pitocin and she had SROM at 2053 of clear fluid. Pitocin was turned off post epidural placement for heart rate concerns but restarted after an hour when contractions had spaced out. She progressed normally. Patient was complete at 0055 and pushing at 0104. of a viable male at 0306 in semi-robert slight right tilt on the bed. Vertex delivered OA. No nuchal cord or shoulder. Body delivered easily and without incident. Infant passed to mothers abdomen with a vigorous cry. Cord was clamped and cut at > 5 minutes. APGARS were 9 at one minute and 9 at five minutes respectively. Mouth was bulb suctioned. True know identified in the cord at time of delivery. Intact placenta with a 3 vessel cord delivered spontaneously at 0324. Sent to pathology for IUGR and true knot. Fundus firm. Perineal 2nd degree laceration identified and repaired in typical fashion. QBL 200 cc. Mother and baby stable; mother plans to breastfeed. Infant weight pending. 1 Minute Interval Total Score: 9 5 Minute Interval Total Score: 9 Additional Details Shoulder Dystocia: No Placenta Delivery Time: 03:24 Placental Delivery Description: Spontaneous Delivery repair: Vicryl Procedure Done: Global Blood Loss: 200 Laceration: Perineal - 2nd Degree Blood Loss Measurement Type: QBL Sponge/Need Count Correct: Yes Cord Vessel Description: 3 Vessels and True Knot Event Summary Status: Mother and infant were stable after delivery. Disposition: floor
[2024-10-09] MEDS: DOCUSATE SODIUM 100 MG CAPSULE PO (07:54)
[2024-10-09] MEDS: IBUPROFEN 600 MG TABLET PO ×2 (07:54→21:24)
[2024-10-10 01:54] VITALS: BP 107/63; PULSE 83; RESP 16; TEMP 36.6; O2SAT 97
[2024-10-10 08:45] VITALS: BP 108/69; PULSE 68; RESP 16; TEMP 36.7; O2SAT 98
--- NOTE | 2024-10-10 10:25 | PM.OBPNVD1 ---
OB - PN:Subj Subjective Time Seen by Provider: 10:26 Date Seen: 10/10/24 Interval history: Patient is a 29 year old, G 1 now P 1001? admitted on 10/08/24 at 38 Weeks, 6 Days gestation for IOL for oligo.? She had an uncomplicated vaginal delivery.? She delivered a viable male infant.?? Patient comments OB post-: no complaints [place] status: and doing well [place] feeding status: exclusively OB - PN: Obj Exam Physical Exam: Vital signs: Temp Pulse Resp BP Pulse Ox O2 Del Method 98.0 F 68 16 108/69 98 Room Air 10/10/24 08:45 10/10/24 08:45 10/10/24 08:45 10/10/24 08:45 10/10/24 08:45 10/10/24 08:45 Narrative: GENERAL APPEARANCE:? normal affect, alert, no distress? MOOD:? appropriate? CHEST:? clear to auscultation and percussion? HEART:? regular rate and rhythm? BREASTS: soft, nontender, no erythema, nipples intact? ABDOMEN:? soft, non-tender the uterine fundus is firm @U and is appropriate for the stage of recovery.? PERINEUM:? mild edema of the perineum, there is a second degree laceration that is healing well.? EXTREMITIES:? normal and no edema? OB - PN: A/P Delivery Assessment and Plan (1) care and examination of lactating mother: Status: Acute Plan 29 year old on day 1.? 1. cares.? 2. Anticipate discharge tomorrow.? Plan day: 1 Plan: routine care
--- NOTE | 2024-10-10 10:55 | PM.ANPOST ---
Post Anesthesia Note Post Anesthesia Note Patient seen: Inpatient Respiratory Status: adequate Cardiovascular Status: adequate Mental Status: baseline Pain: adequate Temp: baseline Anesthetic awareness: no Complications: none Follow care: none
[2024-10-10] MEDS: DOCUSATE SODIUM 100 MG CAPSULE PO (11:39)
[2024-10-10] MEDS: IBUPROFEN 600 MG TABLET PO (13:30)
[2024-10-10 16:03] VITALS: BP 113/72; PULSE 66; RESP 16; TEMP 37.3; O2SAT 97
[2024-10-10 22:39] VITALS: BP 104/74; PULSE 71; RESP 16; TEMP 37.2; O2SAT 97
[2024-10-11] MEDS: IBUPROFEN 600 MG TABLET PO (04:49)
[2024-10-11 05:04] VITALS: BP 109/73; PULSE 77; RESP 16; TEMP 36.8; O2SAT 97
--- NOTE | 2024-10-11 07:49 | P.DS_ITS ---
DS: Providers Provider Date Seen: 10/11/24 Date of admission: 10/08/24 10:33 Primary care physician: Demi Rosario MD Admitting Clinician: Carmen Stapleton CNM Attending Physician on discharge: Carmen Stapleton CNM Date of Discharge: 10/11/24 DS: Diagnosis Discharge Diagnosis (1) care and examination of lactating mother: Status: Acute (2) Vaginal delivery: Status: Acute Exam Narrative: Exam Narrative: GENERAL APPEARANCE:? normal affect, alert, no distress? MOOD:? appropriate? CHEST:? clear to auscultation and percussion? HEART:? regular rate and rhythm? BREASTS: soft, nontender, no erythema, nipples sore but intact? ABDOMEN:? soft, non-tender the uterine fundus is U/2 and is appropriate for the stage of recovery.? PERINEUM:? mild edema of the perineum, there is a 2nd degree laceration that is healing well.? EXTREMITIES:? normal and no edema? Const: Vital Signs, click to edit/add: Vital Signs - 24 hr 10/10/24 08:45 10/10/24 16:03 10/10/24 22:39 Temperature 98.0 F 99.1 F 98.9 F Pulse Rate [Right Pulse Oximeter] 68 66 71 Respiratory Rate 16 16 16 Blood Pressure [Ri ght Arm] 108/69 113/72 104/74 Pulse Oximetry 98 97 97 Oxygen Delivery Me thod Room Air Room Air Room Air 10/11/24 05:04 Temperature 98.2 F Pulse Rate [Right Pulse Oximeter] 77 Respiratory Rate 16 Blood Pressure [Ri ght Arm] 109/73 Pulse Oximetry 97 Oxygen Delivery Me thod Room Air Documenting provider has reviewed patient's vital signs: yes OB - DS: Summary Hospital Course Hospital Course: Lavinia is a 29 y.o. G 1 P 1 who was admitted to L & D for 38.6. ?She had a NVD that was uncomplicated. The patient feels well. ?The pain is well controlled with current medications. ?She has no new complaints. ?She is breast feeding and reports things are going well. the patient has done well.? Vitals have been stable.? She has remained afebrile.? Has a good appetite, is tolerating a general diet. ?She is voiding without difficulty.? She is passing gas and has had a bowel movement without difficulty.? She is ambulating and denies any dizziness.? Has small amount of rubra lochia. She is planning condoms for prevention. Problems: none Peripartum Data Infant delivery method: Vaginal Laceration description: Perineal - 2nd Degree Episiotomy description: None complications: none [place] Infant Gender: Male Infant Discharge Plan: Home Status at Discharge Functional status at discharge: independent ambulation Overall status at discharge: patient is progressing back to baseline Time Spent with Patient Time attestation: Total time spent providing and/or coordinating discharge services: Discharge Plan Discharge Disposition: Home, Self-Care Date of Admission: 10/08/24 10:33 Attending Provider on Discharge: Myra Hopper Primary Care Provider: Demi Rosario Condition: Stable Anticipated Discharge Date/Time: 10/11/24 10:00 Discharge Medications: New docusate sodium 100 mg Capsule 100 mg PO DAILY Qty: 120 0RF Rx Instructions: Take 1-2 tablets as needed for constipation. ibuprofen 600 mg Tablet 600 mg PO Q6H PRNQty: 30 0RF Continued triamcinolone acetonide 0.5 % cream 1 applic topical QDAY PRN One-A-Day -1 27 mg iron- 800 mcg-235 mg capsule 1 cap PO DAILY calcium carbonate [Tums] 200 mg calcium (500 mg) tablet,chewable 200 mg PO BID Discharge Orders: Discharge Order (Routine); Ordered 10/11/24 Ordered By: Myra Hopper Patient Education: OB Over the Counter Medication Information, OB Vaginal/Breast Feeding Additional Instructions: Discharge instructions were reviewed with the patient including signs and symptoms of infection and home going medications Nothing vaginally for 6 weeks: no tampons or intercourse Do not drive while taking narcotic pain medication(s) Off Work or School for 8 weeks Symptoms to report to doctor: * Bleeding that saturates more than one pad per hour * Passing clots larger than the size of a golf ball * Pain not relieved by prescribed medication * Fever above 100.4 degrees Fahrenheit * A foul vaginal odor * Difficulty in emotions, mood, and functions * Thoughts of hurting yourself and/or * Painful, reddened area in your breast * Any drainage, redness, or tenderness in your IV/epidural site * Severe headache that doesn't improve after taking medications * Changes in vision, including temporary loss of vision, blurred vision, and/or light sensitivity * Upper abdominal pain (usually under ribs on the right side) * Decrease in urination or painful, frequent urinating * Chest pain * Shortness of breath * Tenderness or pain with redness and/swelling in the calf(s) of your leg 2-week visit: discuss infant feeding concerns, review control options and screen for anxiety/depression. 6-week visit for an annual exam. consultation services are available to all mothers and babies for the first year after delivery.? To make an appointment, please call [phone]. Activity Level: Activity as Tolerated Discharge Diet: Regular Follow Up Appointments: [facility] [Provider Group] Forms: [employer] Info Instructions
[2024-10-11 09:15] VITALS: BP 106/59; PULSE 69; RESP 16; TEMP 36.7; O2SAT 96
[2024-10-11 13:10] VITALS: BP 105/68; PULSE 98; RESP 16; TEMP 37.2; O2SAT 97
== END 2024-10-11 14:18 | disposition home or self-care (01) | DRG 807 ==
PROVIDERS: Admitting Provider Advanced Practice Midwife; PCP Family Medicine; Visit Provider Advanced Practice Midwife
DX: O41.03X0 Oligohydramnios, third trimester, not applicable or unspecified (principal); Z37.0 Single live birth; O36.5930 Maternal care for other known or suspected poor fetal growth, third trimester, not applicable or unspecified; O26.893 Other specified pregnancy related conditions, third trimester; Z67.41 Type O blood, Rh negative; O70.1 Second degree perineal laceration during delivery; Z3A.38 38 weeks gestation of pregnancy
CPT/HCPCS: 01967; 36415; 84112; 85025; 86592; 86850; 86900; 86901; 88307; A9270; J2795; J7120

== ENCOUNTER 2024-10-13 08:30 | Outpatient (CLI) | payer OTHER, SELFPAY ==
--- NOTE | 2024-10-13 09:44 | W.PM.LAC.MC ---
Consult Note - Mom Date of Visit Date of visit: 10/13/24 Reason for consultation: Assistance Needed Visit Code: Visit Patient's Information Phone number: [phone] Para: 1 Allergies No Known Drug Allergies Allergy (Verified 10/08/24 11:21) Delivery Information Delivery type: Vaginal Gestational Age: 38+5 Gestational Weight For Age: AGA Weight: 3.06 kg Discharge Weight: 2.872 kg Percentage weight loss: 6.2 Baby's Information Baby's Age at Visit: 4 days Baby's Provider or Clinic: [facility] Jaundice: Yes Past Experience Past Experience: No Current Frequency of Day Feedings: every 2-3 hours, needs waking for feedings Frequency of Night Feedings: same Both Breasts: No (offered, but only takes from one side) Suck: strong Latch: difficult at times Length of Time: 10-15 min, usually just one side Pumping Pumping: Yes Quantity Pumped: 5-10 ml with [place]aa Supplementing EBM Supplement: Yes Formula Supplement: No Baby Elimination Number of Wet Diapers a Day: 4 in last 24 hours Number of BM a Day: 6 in last 24 hrs, yellow/seedy in color Breast/Nipple Condition Breast Information: Breasts are symmetrical with rounded lower quadrants, intramammary distance is less than 1.5 inches. No erythema. Nipples are supple, everted prior to feeding. Breast Shape: Round Engorgement: No Maternal Nipple Condition - Left: Common Nipple Maternal Nipple Condition - Right: Common Nipple Sore Nipples: Yes (slight) Interventions for Sore Nipples: [place]/Nipple Cream Baby Assessment Skin: Yellow Tongue/frenulum: Normal/elastic and Restricted mid-range (slight posterior, able to extend tongue over bottom gum line and strong suck/music specialist on gloved finger) Palate: Average Lips: Relaxed and Symmetrical Jaw Alignment: Symmetrical Mucosa: [place], moist Onsite Observation Pre-Feed weight: 2.878 kg Post-Feed weight: 2.88 kg Milk Transferred (mL): 2 Position: Cross cradle and Football Attachment/latch-on achieved: With difficulty Suck pattern: Latched, but no sucking, audible swallows Swallow: Occasionally Behavior following feed: Relaxed, sleepy Pre-Nursing Left Nipple: Within Normal Limits Pre-Nursing Right Nipple: Within Normal Limits Post-Nursing Left Nipple: Within Normal Limits Post-Nursing Right Nipple: Within Normal Limits Assessments/Interventions Assessments/Interventions: Worked with mom to get baby latched; he was not interested in feeding. Will suck on a gloved finger for a few moments and then stops doing even that. Mom states he nursed for 15 min at 0730 so likely not interested yet based on feeding behavior. Attempted to latch on both breasts in both cross cradle and football hold without success. Lavinia has good positioning with baby and breast, brings baby to breast quickly and firmly, waiting for baby to open wide; lewis won't suckle even when milk is compressed into his mouth Education provided: Early feeding cues to maximize timing of latching, Asymmetric latch technique for wide/deep latch to increase milk, Transfer for baby and increase comfort for mom, Supply/demand nature of milk supply, Need for frequent stimulation/milk removal, Alternative feeding methods (SNS, cup, finger feeding, bottling) (discussed paced bottle feeding), Pumping for milk management and Milk collection, storage Feeding Plan: Breastfeed for 10-15 min on each breast, listening for active swallowing. Offer both sides, he may/may not drink from both Pump both breasts for 10-15 minutes if he won't feed from a breast Offer baby 30 ml of pumped milk every 2-3 hours based on feeding cues while working on resolving jaundice Use a syringe/feeding tube, cup, or bottle for feedings based on preference; discussed paced bottle feeding Rest, and repeat every 2-3 hours, watch for early feeding cues; try feeding every 2 hrs during the day and every 3 hrs at night Try skin to skin to increase milk production Follow-Up Recommend baby be seen by provider for:: ECC with Zoie Pickett today at 10:15; will discuss jaundice at that appointment as this is likely adding to his sleepiness and difficulty with feeding Time Spent Time spent with patient (min): 75 Meds Home Medications and Allergies Home Medications ?Medication ?Instructions ?Recorded ?Confirmed ?Type vits 168-iron 27 mg-folic 1 cap PO DAILY 03/12/24 10/08/24 History acid 800 mcg-omega3 235 mg capsule (One-A-Day -1) triamcinolone acetonide 0.5 % 1 applic topical QDAY PRN 03/12/24 10/08/24 History topical cream calcium carbonate (Tums) 200 mg PO BID 06/04/24 10/08/24 History docusate sodium 100 mg capsule 100 mg PO DAILY #120 caps 10/11/24 Rx ibuprofen 600 mg tablet 600 mg PO Q6H PRN #30 tabs 10/11/24 Rx Allergies Allergy/AdvReac Type Severity Reaction Status Date / Time No Known Drug Allergies Allergy Verified 10/08/24 11:21
== END 2024-10-13 08:31 | disposition home or self-care (01) ==
LOC: OB LAC 08:31
PROVIDERS: PCP Family Medicine; Visit Provider Obstetrics & Gynecology
DX: Z39.1 Encounter for care and examination of lactating mother (principal)
CPT/HCPCS: G0463